=== PATIENT | female | born 1965 | race Caucasian/White ===

== ENCOUNTER 2020-09-04 14:33 | Outpatient (REF) | payer OTHER, SELFPAY | END 2020-09-04 14:34 | disposition home or self-care (01) | LOC: HO.LAB 14:33 | PROVIDERS: Visit Provider Internal Medicine | DX: Z20.828 Contact with and (suspected) exposure to other viral communicable diseases (principal) | CPT/HCPCS: C9803; U0003 ==

== ENCOUNTER 2022-11-01 18:58 | Inpatient (IN) | payer OTHER, SELFPAY ==
--- NOTE | ~2022-11-01 | CT_ITS ---
EXAMINATION: CT ABDOMEN AND PELVIS WITH CONTRAST CLINICAL INFORMATION: Left lower quadrant pain and history of diverticulitis. COMPARISON: None TECHNIQUE: Multidetector volumetric images were obtained from the superior aspect of the liver through the pubic symphysis following administration 85 mL of Omnipaque 350 intravenous contrast. Sagittal and coronal reformatted images were obtained on the technologist's workstation. Oral contrast: No This CT examination was performed using dose optimization techniques as appropriate, variously including the following: *Automated exposure control *Adjustment of mA and/or kV according to patient size (this includes techniques or standardized protocols for targeted exams where dose is matched to indication/reason for exam; i.e. extremities or head) *Use of iterative reconstruction technique DLP: 541 mGy-cm FINDINGS: LUNG BASES: Minimal atelectatic changes seen in the lingula. LIVER, GALLBLADDER, AND BILIARY TREE: The liver is normal in size, shape, and attenuation. There is a linear hypodensity seen in the right anterior hepatic lobe likely prominent focal duct. Otherwise no focal hepatic lesion or biliary ductal dilatation is present. The gallbladder is unremarkable with no evidence of radiopaque gallstones, gallbladder wall thickening, or obvious pericholecystic inflammatory changes. PANCREAS: Unremarkable. SPLEEN: Unremarkable. ADRENAL GLANDS: Unremarkable. KIDNEYS AND URETERS: The kidneys are normal in size, shape, and attenuation. No hydronephrosis, hydroureter, or calculi seen. No perinephric stranding. BLADDER: Unremarkable. GASTROINTESTINAL TRACT: There is diffuse colonic diverticulosis with mild mural thickening and fat stranding along the sigmoid/descending colon junction suggestive of diverticulitis. ABDOMINAL WALL: No significant hernia is appreciated. LYMPH NODES: Normal. VASCULAR: Unremarkable. PELVIC VISCERA: Unremarkable. OSSEOUS STRUCTURES: No aggressive lytic or sclerotic process seen. CT/CT abdomen pelvis w IV con IMPRESSION: Colonic diverticulosis with descending/sigmoid colon diverticulitis. Due to underlying annular mural thickening involving the distal descending colon underlying colonic lesion is not excluded. There is no abscess, obstruction or free air. Correlate with clinical exam and colonoscopy if clinically indicated. Fleischner guidelines were followed.
[2022-11-01 19:06] VITALS: BP 136/86; PULSE 107; RESP 20; TEMP 36.2; O2SAT 100; BMI 23.9
--- NOTE | 2022-11-01 19:09 | ED_ITS ---
HPI - General Adult General Chief complaint: Abdominal Pain <MEG Horner - Last Filed: 11/01/22 19:11> Stated complaint: Pain L lower abdominal <MEG Horner - Last Filed: 11/01/22 19:11> Time Seen by Provider: 11/01/22 20:38 <MEG Horner - Last Filed: 11/01/22 19:11> Source: patient <Cliff Kramer MD - Last Filed: 11/02/22 00:26> Mode of arrival: ambulatory <Cliff Kramer MD - Last Filed: 11/02/22 00:26> Limitations: no limitations <Cliff Kramer MD - Last Filed: 11/02/22 00:26> History of Present Illness HPI narrative: Patient history of diverticulosis, hypertension, hypothyroidism, depression and ADHD comes here for pain in the left lower abdomen since morning today got worse prior to arrival with slight nausea no vomiting patient did not eat much during daytime pain get worse on ambulation no fever no chills no urinary symptoms no abdominal distension no back pain patient had a history of diverticulitis about 25 years ago <Cliff Kramer MD - Last Filed: 11/02/22 00:26> Related Data Allergies/adverse reactions: Allergies Allergy/AdvReac Type Severity Reaction Status Date / Time No Known Allergies Allergy Verified 11/01/22 19:11 <MEG Horner - Last Filed: 11/01/22 19:11> Review of Systems Review of Systems: Yes all other systems are reviewed and are negative <Cliff Kramer MD - Last Filed: 11/02/22 00:26> [facility] Past Medical History Medical History: Medical History Hypertension Hypothyroidism Mood disorder <MEG Horner - Last Filed: 11/01/22 19:11> Social History Social History: Social History Advance Directives: No Advance Directives Information Provided: No <MEG Horner - Last Filed: 11/01/22 19:11> Physical Exam ED Vital Signs: Vital Signs - 24 hr 11/01/22 19:06 11/01/22 21:08 Temperature 97.2 F 98.6 F Pulse Rate 107 H 90 Respiratory Rate 20 16 Blood Pressure 136/86 133/79 Pulse Oximetry 100 100 Oxygen Delivery Method Room Air Room Air BMI result Body Mass Index 23.9 <MEG Horner - Last Filed: 11/01/22 19:11> Vital Signs - 24 hr 11/01/22 19:06 11/01/22 21:08 Temperature 97.2 F 98.6 F Pulse Rate 107 H 90 Respiratory Rate 20 16 Blood Pressure 136/86 133/79 Pulse Oximetry 100 100 Oxygen Delivery Method Room Air Room Air BMI result Body Mass Index 23.9 <Cliff Kramer MD - Last Filed: 11/02/22 00:26> Appearance: Alert. Oriented X3. No acute distress. Eyes: No pallor or icterus ENT: Pharynx normal. Oral Mucosa moist Neck: Normal inspection. Neck supple. CVS: Normal heart rate and rhythm. Pulses normal. Respiratory: No respiratory distress. Equal air entry bilateral, no wheezing/rales/rhonchi Abdomen: Soft , tender left lower quadrant with guarding no rebound tenderness. Bowel sounds are present, no mass palpable, no CVA tenderness Skin: Skin warm and dry. Normal skin color. Normal skin turgor. Extremities: No lower extremity edema. No calf tenderness Neuro: Oriented X 3. No motor deficit. <Cliff Kramer MD - Last Filed: 11/02/22 00:26> Course Course Course Narrative: RME performed by Tere Leonard PA-C. Patient is a 57 year old female presenting to the emergency department with lower left abdominal pain. Patient states that she has a history of diverticulitis and HTN. Labs ordered. Patient placed back in the waiting room pending room availability and results. < MEG Horner - Last Filed: 11/01/22 19:11> Medications Administered Generic Name Dose Route Start Last Admin Trade Name Freq PRN Reason Stop Dose Admin Enoxaparin Sodium 40 mg 11/02/22 00:15 11/02/22 00:20 Enoxaparin Sodium 40 Mg/0.4 Ml Syringe SUBCUT 40 mg Q24H LELO Administration Melatonin 6 mg 11/02/22 00:03 11/02/22 00:20 Melatonin 3 Mg Tablet PO 6 mg BEDTIME PRN Administration Insomnia Discontinued Medications Generic Name Dose Route Start Last Admin Trade Name Freq PRN Reason Stop Dose Admin Sodium Chloride 1,000 mls @ 999 mls/hr 11/01/22 20:40 11/01/22 22:52 Ns IV 11/01/22 21:40 Infused .Q1H1M ONE Infusion Piperacillin Sod/Tazobactam 50 mls @ 100 mls/hr 11/01/22 21:53 11/01/22 23:28 Sod 3.375 gm/ Sodium Chloride IV 11/01/22 22:22 Infused ONCE ONE Infusion Iohexol 100 ml 11/01/22 21:25 11/01/22 21:25 Iohexol 350 Mg/Ml 100 Ml Infus..Btl IV 11/01/22 21:26 85 ml ONCE ONE Administration Morphine Sulfate 4 mg 11/01/22 21:14 11/01/22 21:47 Morphine Sulfate 4 Mg/Ml Cartridge IVPUSH 11/01/22 21:15 4 mg ONCE ONE Administration Protocol Morphine Sulfate 4 mg 11/01/22 23:07 11/01/22 23:14 Morphine Sulfate 4 Mg/Ml Cartridge IVPUSH 11/01/22 23:08 4 mg ONCE ONE Administration Protocol Ondansetron HCl 4 mg 11/01/22 21:14 11/01/22 21:47 Ondansetron Hcl 4 Mg/2 Ml Vial IVPUSH 11/01/22 21:15 4 mg ONCE ONE Administration <MEG Horner - Last Filed: 11/01/22 19:11> Medications Administered Generic Name Dose Route Start Last Admin Trade Name Freq PRN Reason Stop Dose Admin Enoxaparin Sodium 40 mg 11/02/22 00:15 11/02/22 00:20 Enoxaparin Sodium 40 Mg/0.4 Ml Syringe SUBCUT 40 mg Q24H LELO Administration Melatonin 6 mg 11/02/22 00:03 11/02/22 00:20 Melatonin 3 Mg Tablet PO 6 mg BEDTIME PRN Administration Insomnia Discontinued Medications Generic Name Dose Route Start Last Admin Trade Name Freq PRN Reason Stop Dose Admin Sodium Chloride 1,000 mls @ 999 mls/hr 11/01/22 20:40 11/01/22 22:52 Ns IV 11/01/22 21:40 Infused .Q1H1M ONE Infusion Piperacillin Sod/Tazobactam 50 mls @ 100 mls/hr 11/01/22 21:53 11/01/22 23:28 Sod 3.375 gm/ Sodium Chloride IV 11/01/22 22:22 Infused ONCE ONE Infusion Iohexol 100 ml 11/01/22 21:25 11/01/22 21:25 Iohexol 350 Mg/Ml 100 Ml Infus..Btl IV 11/01/22 21:26 85 ml ONCE ONE Administration Morphine Sulfate 4 mg 11/01/22 21:14 11/01/22 21:47 Morphine Sulfate 4 Mg/Ml Cartridge IVPUSH 11/01/22 21:15 4 mg ONCE ONE Administration Protocol Morphine Sulfate 4 mg 11/01/22 23:07 11/01/22 23:14 Morphine Sulfate 4 Mg/Ml Cartridge IVPUSH 11/01/22 23:08 4 mg ONCE ONE Administration Protocol Ondansetron HCl 4 mg 11/01/22 21:14 11/01/22 21:47 Ondansetron Hcl 4 Mg/2 Ml Vial IVPUSH 11/01/22 21:15 4 mg ONCE ONE Administration <Cliff Kramer MD - Last Filed: 11/02/22 00:26> Medical Decision Making Medical Decision Making [facility] Narrative: Patient with acute diverticulitis symptomatic requiring pain medication for pain control unable to eat much hypoglycemic on arrival although lactic acid level is normal and WBC counts normal CT scan showed significant inflammation in sigmoid area. Will admit patient for IV antibiotic and pain control and IV hydration <Cliff Kramer MD - Last Filed: 11/02/22 00:26> Consult Healthcare Provider Management of the patient was discussed with: Hospitalist <Cliff Kramer MD - Last Filed: 11/02/22 00:26> Lab Data [facility] Lab Attestation statement: I reviewed the patient's lab results. <Cilff Kramer MD - Last Filed: 11/02/22 00:26> Result Diagrams: 11/01/22 20:05 11/01/22 20:05 <MEG Horner - Last Filed: 11/01/22 19:11> Labs: Lab Results 11/01/22 11/01/22 11/01/22 Range/Units 20:05 20:05 20:05 WBC 10.8 (4.8-10.8) X10*3/uL RBC 3.81 L (4.20-5.50) X10*6/uL Hgb 11.7 L (12.0-16.0) g/dl Hct 34.5 L (37.0-47.0) % MCV 90.6 (80.0-98.0) fL MCH 30.7 (27.0-33.0) pg MCHC 33.9 (31.0-35.0) g/dl RDW 12.8 (11.0-16.0) % Plt Count 257 (160-400) X10*3/uL MPV 8.9 L (9.4-12.3) fL Immature Gran % (Auto) 0.4 (0.0-0.4) % Neut % (Auto) 68.1 (45-73) % Lymph % (Auto) 19.4 L (20-40) % [place] % (Auto) 10.9 (2-11) % Eos % (Auto) 0.8 (0-4) % Baso % (Auto) 0.4 (0-2) % Lymph # (Auto) 2.1 (1.2-4.9) X10*3/uL [place] # (Auto) 1.2 (0.1-1.2) X10*3/uL Eos # (Auto) 0.1 (0.0-0.4) X10*3/uL Baso # (Auto) 0.0 (0.0-0.2) X10*3/uL Abs Immat Gran (auto) 0.04 H (0.00-0.03) X10*3/uL Absolute Neuts (auto) 7.4 (2.0-8.3) x10*3/uL Absolute Nucleated RBC 0.000 (0.0-0.012) X10*3/uL Nucleated RBC % (auto) 0.0 (0.0-0.2) /100WBC Sodium 135 (135-145) mmol/L Potassium 4.4 (3.3-5.1) mmol/L Chloride 98 (96-108) mmol/L Carbon Dioxide 27 (22-29) mmol/L Anion Gap 14 (12-20) BUN 11 (9-16) mg/dL Creatinine 0.81 (0.5-1.4) mg/dL Estim Creat Clear Calc 67.2 Estimated GFR > 60 POC Glucose (60-115) mg/dL Random Glucose 50 L* (60-115) mg/dL Lactic Acid (0.5-2.0) mmol/L Calcium 9.1 (8.4-10.2) mg/dL Magnesium 2.0 (1.6-2.6) mg/dL Total Bilirubin 0.4 (0.0-1.0) mg/dL AST 37 H (5-31) U/L ALT 30 (0-31) U/L Alkaline Phosphatase 69 (39-117) U/L Total Protein 6.7 (6.5-8.0) g/dL Albumin 4.0 (3.5-5.0) g/dL Urine Color Urine Appearance Urine pH (5.0-9.0) Ur Specific [place] (1.005-1.025) Urine Protein (Neg-Trace) mg/dL Urine Glucose (UA) (Negative) mg/dL Urine Ketones (Negative) mg/dL Urine Blood (Negative) Urine Nitrite (Negative) Ur Leukocyte Esterase (Negative) Urine RBC (0-2) /HPF Urine WBC (0-5) /HPF Ur Squamous Epith Cells (0-2) /HPF Urine Bacteria (None Seen) Hyaline Casts (0-2) /LPF Influenza Type A (PCR) NEGATIVE (Negative) Influenza Type B (PCR) NEGATIVE (Negative) RSV RNA Qual (PCR) NEGATIVE (Negative) SARS-CoV-2 RNA (RT-PCR) NEGATIVE (Negative) 11/01/22 11/01/22 11/01/22 Range/Units 20:05 21:14 22:45 WBC (4.8-10.8) X10*3/uL RBC (4.20-5.50) X10*6/uL Hgb (12.0-16.0) g/dl Hct (37.0-47.0) % MCV (80.0-98.0) fL MCH (27.0-33.0) pg MCHC (31.0-35.0) g/dl RDW (11.0-16.0) % Plt Count (160-400) X10*3/uL MPV (9.4-12.3) fL Immature Gran % (Auto) (0.0-0.4) % Neut % (Auto) (45-73) % Lymph % (Auto) (20-40) % [place] % (Auto) (2-11) % Eos % (Auto) (0-4) % Baso % (Auto) (0-2) % Lymph # (Auto) (1.2-4.9) X10*3/uL [place] # (Auto) (0.1-1.2) X10*3/uL Eos # (Auto) (0.0-0.4) X10*3/uL Baso # (Auto) (0.0-0.2) X10*3/uL Abs Immat Gran (auto) (0.00-0.03) X10*3/uL Absolute Neuts (auto) (2.0-8.3) x10*3/uL Absolute Nucleated RBC (0.0-0.012) X10*3/uL Nucleated RBC % (auto) (0.0-0.2) /100WBC Sodium (135-145) mmol/L Potassium (3.3-5.1) mmol/L Chloride (96-108) mmol/L Carbon Dioxide (22-29) mmol/L Anion Gap (12-20) BUN (9-16) mg/dL Creatinine (0.5-1.4) mg/dL Estim Creat Clear Calc Estimated GFR POC Glucose 83 (60-115) mg/dL Random Glucose (60-115) mg/dL Lactic Acid 1.5 (0.5-2.0) mmol/L Calcium (8.4-10.2) mg/dL Magnesium (1.6-2.6) mg/dL Total Bilirubin (0.0-1.0) mg/dL AST (5-31) U/L ALT (0-31) U/L Alkaline Phosphatase (39-117) U/L Total Protein (6.5-8.0) g/dL Albumin (3.5-5.0) g/dL Urine Color Yellow Urine Appearance Clear Urine pH 6.5 (5.0-9.0) Ur Specific [place] 1.015 (1.005-1.025) Urine Protein Negative (Neg-Trace) mg/dL Urine Glucose (UA) Negative (Negative) mg/dL Urine Ketones Negative (Negative) mg/dL Urine Blood Negative (Negative) Urine Nitrite Negative (Negative) Ur Leukocyte Esterase Small (1+) H (Negative) Urine RBC 0-2 (0-2) /HPF Urine WBC 0-5 (0-5) /HPF Ur Squamous Epith Cells 0-2 (0-2) /HPF Urine Bacteria None Seen (None Seen) Hyaline Casts 0-2 (0-2) /LPF Influenza Type A (PCR) (Negative) Influenza Type B (PCR) (Negative) RSV RNA Qual (PCR) (Negative) SARS-CoV-2 RNA (RT-PCR) (Negative) <MEG Horner - Last Filed: 11/01/22 19:11> Lab Results 11/01/22 11/01/22 11/01/22 Range/Units 20:05 20:05 20:05 WBC 10.8 (4.8-10.8) X10*3/uL RBC 3.81 L (4.20-5.50) X10*6/uL Hgb 11.7 L (12.0-16.0) g/dl Hct 34.5 L (37.0-47.0) % MCV 90.6 (80.0-98.0) fL MCH 30.7 (27.0-33.0) pg MCHC 33.9 (31.0-35.0) g/dl RDW 12.8 (11.0-16.0) % Plt Count 257 (160-400) X10*3/uL MPV 8.9 L (9.4-12.3) fL Immature Gran % (Auto) 0.4 (0.0-0.4) % Neut % (Auto) 68.1 (45-73) % Lymph % (Auto) 19.4 L (20-40) % [place] % (Auto) 10.9 (2-11) % Eos % (Auto) 0.8 (0-4) % Baso % (Auto) 0.4 (0-2) % Lymph # (Auto) 2.1 (1.2-4.9) X10*3/uL [place] # (Auto) 1.2 (0.1-1.2) X10*3/uL Eos # (Auto) 0.1 (0.0-0.4) X10*3/uL Baso # (Auto) 0.0 (0.0-0.2) X10*3/uL Abs Immat Gran (auto) 0.04 H (0.00-0.03) X10*3/uL Absolute Neuts (auto) 7.4 (2.0-8.3) x10*3/uL Absolute Nucleated RBC 0.000 (0.0-0.012) X10*3/uL Nucleated RBC % (auto) 0.0 (0.0-0.2) /100WBC Sodium 135 (135-145) mmol/L Potassium 4.4 (3.3-5.1) mmol/L Chloride 98 (96-108) mmol/L Carbon Dioxide 27 (22-29) mmol/L Anion Gap 14 (12-20) BUN 11 (9-16) mg/dL Creatinine 0.81 (0.5-1.4) mg/dL Estim Creat Clear Calc 67.2 Estimated GFR > 60 POC Glucose (60-115) mg/dL Random Glucose 50 L* (60-115) mg/dL Lactic Acid (0.5-2.0) mmol/L Calcium 9.1 (8.4-10.2) mg/dL Magnesium 2.0 (1.6-2.6) mg/dL Total Bilirubin 0.4 (0.0-1.0) mg/dL AST 37 H (5-31) U/L ALT 30 (0-31) U/L Alkaline Phosphatase 69 (39-117) U/L Total Protein 6.7 (6.5-8.0) g/dL Albumin 4.0 (3.5-5.0) g/dL Urine Color Urine Appearance Urine pH (5.0-9.0) Ur Specific [place] (1.005-1.025) Urine Protein (Neg-Trace) mg/dL Urine Glucose (UA) (Negative) mg/dL Urine Ketones (Negative) mg/dL Urine Blood (Negative) Urine Nitrite (Negative) Ur Leukocyte Esterase (Negative) Urine RBC (0-2) /HPF Urine WBC (0-5) /HPF Ur Squamous Epith Cells (0-2) /HPF Urine Bacteria (None Seen) Hyaline Casts (0-2) /LPF Influenza Type A (PCR) NEGATIVE (Negative) Influenza Type B (PCR) NEGATIVE (Negative) RSV RNA Qual (PCR) NEGATIVE (Negative) SARS-CoV-2 RNA (RT-PCR) NEGATIVE (Negative) 11/01/22 11/01/22 11/01/22 Range/Units 20:05 21:14 22:45 WBC (4.8-10.8) X10*3/uL RBC (4.20-5.50) X10*6/uL Hgb (12.0-16.0) g/dl Hct (37.0-47.0) % MCV (80.0-98.0) fL MCH (27.0-33.0) pg MCHC (31.0-35.0) g/dl RDW (11.0-16.0) % Plt Count (160-400) X10*3/uL MPV (9.4-12.3) fL Immature Gran % (Auto) (0.0-0.4) % Neut % (Auto) (45-73) % Lymph % (Auto) (20-40) % [place] % (Auto) (2-11) % Eos % (Auto) (0-4) % Baso % (Auto) (0-2) % Lymph # (Auto) (1.2-4.9) X10*3/uL [place] # (Auto) (0.1-1.2) X10*3/uL Eos # (Auto) (0.0-0.4) X10*3/uL Baso # (Auto) (0.0-0.2) X10*3/uL Abs Immat Gran (auto) (0.00-0.03) X10*3/uL Absolute Neuts (auto) (2.0-8.3) x10*3/uL Absolute Nucleated RBC (0.0-0.012) X10*3/uL Nucleated RBC % (auto) (0.0-0.2) /100WBC Sodium (135-145) mmol/L Potassium (3.3-5.1) mmol/L Chloride (96-108) mmol/L Carbon Dioxide (22-29) mmol/L Anion Gap (12-20) BUN (9-16) mg/dL Creatinine (0.5-1.4) mg/dL Estim Creat Clear Calc Estimated GFR POC Glucose 83 (60-115) mg/dL Random Glucose (60-115) mg/dL Lactic Acid 1.5 (0.5-2.0) mmol/L Calcium (8.4-10.2) mg/dL Magnesium (1.6-2.6) mg/dL Total Bilirubin (0.0-1.0) mg/dL AST (5-31) U/L ALT (0-31) U/L Alkaline Phosphatase (39-117) U/L Total Protein (6.5-8.0) g/dL Albumin (3.5-5.0) g/dL Urine Color Yellow Urine Appearance Clear Urine pH 6.5 (5.0-9.0) Ur Specific [place] 1.015 (1.005-1.025) Urine Protein Negative (Neg-Trace) mg/dL Urine Glucose (UA) Negative (Negative) mg/dL Urine Ketones Negative (Negative) mg/dL Urine Blood Negative (Negative) Urine Nitrite Negative (Negative) Ur Leukocyte Esterase Small (1+) H (Negative) Urine RBC 0-2 (0-2) /HPF Urine WBC 0-5 (0-5) /HPF Ur Squamous Epith Cells 0-2 (0-2) /HPF Urine Bacteria None Seen (None Seen) Hyaline Casts 0-2 (0-2) /LPF Influenza Type A (PCR) (Negative) Influenza Type B (PCR) (Negative) RSV RNA Qual (PCR) (Negative) SARS-CoV-2 RNA (RT-PCR) (Negative) <Cliff Kramer MD - Last Filed: 11/02/22 00:26> Discharge Plan Discharge Clinical Impression: Diverticulitis <MEG Horner - Last Filed: 11/01/22 19:11> Patient Disposition: Admitted As Inpatient <MEG Horner - Last Filed: 11/01/22 19:11>
[2022-11-01 20:12] LABS: MANUAL DIFF FLAG NO
[2022-11-01 20:13] LABS: Basophils Percent Auto 0.4 % (0-2); Eosinophils Absolute Auto 0.1 X10*3/uL (0.0-0.4); Eosinophils Percent Auto 0.8 % (0-4); Hematocrit 34.5 % (37.0-47.0); Hemoglobin 11.7 g/dl (12.0-16.0); Imm Gran Abs Auto 0.04 X10*3/uL (0.00-0.03); Imm Gran Pct Auto 0.4 % (0.0-0.4); Lymphocytes Absolute Auto 2.1 X10*3/uL (1.2-4.9); Lymphocytes Percent Auto 19.4 % (20-40); Mean Corpuscular HGB Conc 33.9 g/dl (31.0-35.0); Mean Corpuscular Hemoglobin 30.7 pg (27.0-33.0); Mean Corpuscular Volume 90.6 fL (80.0-98.0); Mean Platelet Volume 8.9 fL (9.4-12.3); Monocytes Absolute Auto 1.2 X10*3/uL (0.1-1.2); Monocytes Percent Auto 10.9 % (2-11); Neutrophils Absolute Auto 7.4 x10*3/uL (2.0-8.3); Neutrophils Percent Auto 68.1 % (45-73); Platelet Count 257 X10*3/uL (160-400); Red Blood Count 3.81 X10*6/uL (4.20-5.50); Red Cell Distribution Width 12.8 % (11.0-16.0); White Blood Count 10.8 X10*3/uL (4.8-10.8)
[2022-11-01 20:14] LABS: Appearance Urine Clear; Color Urine Yellow; Glucose Urine UA Negative (Negative); Leukocyte Esterase Urine Small (1+) (Negative); Nitrite Urine Negative (Negative); PH 6.5 (5.0-9.0); Specific Gravity - Urine 1.015 (1.005-1.025); UMIC TRIGGER UACC YES; Urine Blood Negative (Negative); Urine Ketones Negative (Negative); Urine Protein Negative (Neg-Trace)
[2022-11-01 20:24] LABS: Bacteria Urine None Seen (None Seen); Hyaline Casts Urine 0-2 /LPF (0-2); RBC Urine 0-2 /HPF (0-2); Squamous Epithelial Cell Urine 0-2 /HPF (0-2); UACC Culture Trigger YES; WBC Urine 0-5 /HPF (0-5)
[2022-11-01 20:50] LABS: Influenza A PCR NEGATIVE (Negative); Influenza B PCR NEGATIVE (Negative); Resp Syncy Virus RNA Qual PCR NEGATIVE (Negative); SARS COV2 PCR INHOUSE NEGATIVE (Negative)
[2022-11-01 20:52] LABS: Alanine Aminotransferase 30 U/L (0-31); Alkaline Phosphatase 69 U/L (39-117); Anion Gap 14 (12-20); Aspartate Amino Transferase 37 U/L (5-31); Bilirubin Total 0.4 mg/dL (0.0-1.0); Blood Urea Nitrogen 11 mg/dL (9-16); Calcium 9.1 mg/dL (8.4-10.2); Carbon Dioxide 27 mmol/L (22-29); Chloride 98 mmol/L (96-108); Creatinine Clr Calc Pharmacy 67.2; Estimated Glomerular Filt Rate > 60; Glucose Random 50 mg/dL (60-115); Potassium 4.4 mmol/L (3.3-5.1); Sodium 135 mmol/L (135-145); Total Protein 6.7 g/dL (6.5-8.0)
[2022-11-01 21:08] VITALS: BP 133/79; PULSE 90; RESP 16; TEMP 37; O2SAT 100
[2022-11-01 21:20] LABS: Glucose, Whole Blood 83 mg/dL (60-115)
[2022-11-01] MEDS: iohexoL 350 MG/ML 100 ML INFUS..BTL IV (21:25)
[2022-11-01] MEDS: ondansetron HCL 4 MG/2 ML VIAL IVPUSH (21:47)
[2022-11-01] MEDS: Morphine Sulfate 4 MG/ML CARTRIDGE IVPUSH ×2 (21:47→23:14)
[2022-11-01] MEDS: 0.9 % Sodium Chloride 1,000 ML 999 ML IV (21:48)
[2022-11-01] MEDS: Piperacillin Sodium/Tazobactam 3.375 GM in 0.9 % Sodium Chloride 50 ML IV (22:52)
[2022-11-01 23:06] LABS: Lactic Acid 1.5 mmol/L (0.5-2.0)
[2022-11-02] VITALS (9 sets, daily range): BP systolic 103–142; BP diastolic 58–82; PULSE 59–84; RESP 12–18; TEMP 36.5–36.9; O2SAT 98–100
--- NOTE | 2022-11-02 00:07 | P.HPHOSP_ITS ---
History of Present Illness Date of Service: 11/02/22 Chief Complaint: Abdominal pain This is a 57-year-old female with pertinent history of essential hypertension, mood disorder, hypothyroidism who presents to the emergency department for evaluation of abdominal pain. Patient states she started having left lower quadrant abdominal pain on the day of presentation which was sudden in onset, constant and without any relieving factors. Nonradiating. It worse worse with p.o. intake. Patient has not been able to eat anything throughout the day due to abdominal discomfort. Does endorse chills And nausea. She denies fever, vomiting, chest discomfort, palpitations, shortness of breath, changes in urinary or bowel habits. In the emergency department, imaging consistent with diverticulitis Review of Systems Constitutional: Constitutional: Reports chills Cardiovascular: Cardiovascular: Reports no additional cardiovascular complaints Respiratory: Respiratory: Reports no additional respiratory complaints Gastrointestinal: Gastrointestinal: Reports abdominal pain and Reports nausea Genitourinary: Genitourinary: Reports no additional female genitourinary complaints Musculoskeletal: Musculoskeletal: Reports no additional musculoskeletal complaints [facility] Medical History Hypertension Hypothyroidism Mood disorder Functional capacity: independent ambulation Pertinent family history: no family history of CAD Social History Advance Directives: No Advance Directives Information Provided: No Meds Allergies Allergy/AdvReac Type Severity Reaction Status Date / Time No Known Allergies Allergy Verified 11/01/22 19:11 Active Medications: Current Medications Acetaminophen (Acetaminophen 325 Mg Tablet) 650 mg PO Q6H PRN PRN Reason: Pain, Mild (Pain Scale 1-3) Enoxaparin Sodium (Enoxaparin Sodium 40 Mg/0.4 Ml Syringe) 40 mg SUBCUT Q24H [facility] Piperacillin Sod/Tazobactam (Sod 4.5 gm/ Sodium Chloride) 100 mls @ 200 mls/hr IV Q6H [facility] Melatonin (Melatonin 3 Mg Tablet) 6 mg PO BEDTIME PRN PRN Reason: Insomnia Morphine Sulfate (Morphine Sulfate 4 Mg/Ml Cartridge) 4 mg IVPUSH Q4H PRN; Protocol PRN Reason: Pain, Severe (Pain Scale 7-10) Ondansetron HCl (Ondansetron Hcl 4 Mg/2 Ml Vial) 4 mg IVPUSH Q8H PRN PRN Reason: Nausea and Vomiting Sodium Chloride (0.9 % Sodium Chloride Flush 3 Ml Syringe) 3 ml IVFLUSH QSHIFT [facility] Physical Exam Vital Signs and Narrative: Vital Signs: Last Vital Signs Temp 98.6 F 11/01/22 21:08 Pulse 90 11/01/22 21:08 Resp 16 11/01/22 21:08 BP 133/79 11/01/22 21:08 Pulse Ox 100 11/01/22 21:08 O2 Del Method 11/01/22 21:08 BMI result Body Mass Index 23.9 Middle-aged female lying in bed in mild distress Neck supple, no JVD Regular rate and rhythm, S1-S2 heard Regular breath sounds bilaterally, no wheezing or crackles appreciated Abdomen with left lower quadrant tenderness, no guarding, no rebound tenderness, no rigidity Patient is awake, alert and oriented to self, place, time and person ; no focal motor deficit Psych: Normal mood No pedal edema Results Labs 11/01/22 20:05 11/01/22 20:05 Labs: Laboratory Results - last 24 hr 11/01/22 11/01/22 11/01/22 20:05 20:05 20:05 MCV 90.6 MCH 30.7 MCHC 33.9 RDW 12.8 Plt Count 257 MPV 8.9 L Immature Gran % (Auto) 0.4 Neut % (Auto) 68.1 Lymph % (Auto) 19.4 L [place] % (Auto) 10.9 Eos % (Auto) 0.8 Baso % (Auto) 0.4 Lymph # (Auto) 2.1 [place] # (Auto) 1.2 Eos # (Auto) 0.1 Baso # (Auto) 0.0 Abs Immat Gran (auto) 0.04 H Absolute Neuts (auto) 7.4 Absolute Nucleated RBC 0.000 Nucleated RBC % (auto) 0.0 Anion Gap 14 Estim Creat Clear Calc 67.2 Estimated GFR > 60 POC Glucose Random Glucose 50 L* Lactic Acid Calcium 9.1 Magnesium 2.0 Total Bilirubin 0.4 AST 37 H ALT 30 Alkaline Phosphatase 69 Total Protein 6.7 Albumin 4.0 Urine Color Urine Appearance Urine pH Ur Specific [place] Urine Protein Urine Glucose (UA) Urine Ketones Urine Blood Urine Nitrite Ur Leukocyte Esterase Urine RBC Urine WBC Ur Squamous Epith Cells Urine Bacteria Hyaline Casts Influenza Type A (PCR) NEGATIVE Influenza Type B (PCR) NEGATIVE RSV RNA Qual (PCR) NEGATIVE SARS-CoV-2 RNA (RT-PCR) NEGATIVE 11/01/22 11/01/22 11/01/22 20:05 21:14 22:45 MCV MCH MCHC RDW Plt Count MPV Immature Gran % (Auto) Neut % (Auto) Lymph % (Auto) [place] % (Auto) Eos % (Auto) Baso % (Auto) Lymph # (Auto) [place] # (Auto) Eos # (Auto) Baso # (Auto) Abs Immat Gran (auto) Absolute Neuts (auto) Absolute Nucleated RBC Nucleated RBC % (auto) Anion Gap Estim Creat Clear Calc Estimated GFR POC Glucose 83 Random Glucose Lactic Acid 1.5 Calcium Magnesium Total Bilirubin AST ALT Alkaline Phosphatase Total Protein Albumin Urine Color Yellow Urine Appearance Clear Urine pH 6.5 Ur Specific [place] 1.015 Urine Protein Negative Urine Glucose (UA) Negative Urine Ketones Negative Urine Blood Negative Urine Nitrite Negative Ur Leukocyte Esterase Small (1+) H Urine RBC 0-2 Urine WBC 0-5 Ur Squamous Epith Cells 0-2 Urine Bacteria None Seen Hyaline Casts 0-2 Influenza Type A (PCR) Influenza Type B (PCR) RSV RNA Qual (PCR) SARS-CoV-2 RNA (RT-PCR) Imaging Radiologist's Impressions: Impressions Abdomen/Pelvis CT 11/01/22 21:29 IMPRESSION: Colonic diverticulosis with descending/sigmoid colon diverticulitis. Due to underlying annular mural thickening involving the distal descending colon underlying colonic lesion is not excluded. There is no abscess, obstruction or free air. Correlate with clinical exam and colonoscopy if clinically indicated. Fleischner guidelines were followed. Assessment and Plan (1) Diverticulitis: Status: Acute Plan This is a 57-year-old female with pertinent history of essential hypertension, mood disorder, hypothyroidism who presents to the emergency department for evaluation of abdominal pain. ?#. Acute uncomplicated sigmoid diverticulitis:? Will admit patient for pain control and inability to? tolerate p.o. intake. Continue empiric IV antibiot ics.? IV morphine p.r.n. for pain control.? Resuscitating with IV crystalloids.? NPO for bowel rest, may try liquid diet in a.m. and advance diet as tolerated.? Recommend outpatient colonoscopy in 6-8 weeks after symptom resolution. #. hypoglycemia: Likely in the setting of infection. Resolved with dextrose IV push. Monitor q.6 hours #. essential hypertension: Continue home antihypertensives #. generalized anxiety disorder: Continue Wellbutrin #. hypothyroidism: On Synthroid med rec pending DVT prophylaxis:? Lovenox 40 mg daily Full code NPO.? Advance as tolerated Admit as inpatient and will require two night minimum hospital stay for IV antibiotics and symptom control Time Spent With Patient Time: Total time managing care of this patient today ____ minutes. Quality Stroke Does the patient have a stroke diagnosis?: No VTE Prior VTE?: No VTE Risk Level:: Medical - moderate - high VTE Device Contraindication: Treatment Not Indicated VTE Drug Contraindication: N/A - Med Ordered
[2022-11-02] MEDS: Enoxaparin Sodium 40 MG/0.4 ML SYRINGE SUBCUT (00:20)
[2022-11-02] MEDS: Melatonin 3 MG TABLET 6 MG PO (00:20)
[2022-11-02 00:39] LABS: Glucose, Whole Blood 93 mg/dL (60-115)
--- NOTE | 2022-11-02 03:10 | PC.NURSE ---
pt reported left lower abd pain increased to 7/10, pt refused any medications at this time
--- NOTE | 2022-11-02 03:17 | MHC.EDTECH ---
PATIENT WENT TO BATHROOM ,VITALS SIGN TAKEN WARM BLANKET GIVEN .
[2022-11-02] MEDS: Levothyroxine Sodium 75 MCG TABLET PO (05:18)
[2022-11-02] MEDS: Piperacillin Sodium/Tazobactam 4.5 GM in 0.9 % Sodium Chloride 100 ML IV ×3 (05:18→18:24)
[2022-11-02 06:17] LABS: Glucose, Whole Blood 79 mg/dL (60-115)
[2022-11-02 06:18] LABS: MANUAL DIFF FLAG NO
[2022-11-02 06:20] LABS: Basophils Percent Auto 0.4 % (0-2); Eosinophils Absolute Auto 0.1 X10*3/uL (0.0-0.4); Eosinophils Percent Auto 0.9 % (0-4); Hematocrit 31.2 % (37.0-47.0); Hemoglobin 10.5 g/dl (12.0-16.0); Imm Gran Abs Auto 0.02 X10*3/uL (0.00-0.03); Imm Gran Pct Auto 0.2 % (0.0-0.4); Lymphocytes Absolute Auto 2.9 X10*3/uL (1.2-4.9); Mean Corpuscular HGB Conc 33.7 g/dl (31.0-35.0); Mean Corpuscular Hemoglobin 31.3 pg (27.0-33.0); Mean Corpuscular Volume 92.9 fL (80.0-98.0); Mean Platelet Volume 9.3 fL (9.4-12.3); Monocytes Percent Auto 10.9 % (2-11); Neutrophils Absolute Auto 5.3 x10*3/uL (2.0-8.3); Neutrophils Percent Auto 56.6 % (45-73); Platelet Count 242 X10*3/uL (160-400); Red Blood Count 3.36 X10*6/uL (4.20-5.50); White Blood Count 9.4 X10*3/uL (4.8-10.8)
[2022-11-02 06:33] LABS: Anion Gap 11 (12-20); Blood Urea Nitrogen 8 mg/dL (9-16); Calcium 8.7 mg/dL (8.4-10.2); Carbon Dioxide 29 mmol/L (22-29); Chloride 102 mmol/L (96-108); Creatinine Clr Calc Pharmacy 65.6; Estimated Average Glucose 108 mg/dL; Estimated Glomerular Filt Rate > 60; Glucose Random 104 mg/dL (60-115); Hemoglobin A1c % 5.4 %; Potassium 4.8 mmol/L (3.3-5.1); Sodium 137 mmol/L (135-145)
--- NOTE | 2022-11-02 08:36 | PHA.MEDREC ---
Pharmacy Consult ? Medication Reconciliation Pharmacy has completed the medication reconciliation. Patient said she is also on fish oil and magnesium but wasn't completely sure of dose.
--- NOTE | 2022-11-02 08:40 | PC.NURSE ---
report taken from becky weaver pt admitted inpt for mgmt of diverticulitis, poor toleration of po at home, npo while in ed. pt tolerates sips of water without n/v, seen by hospitalist this am and advanced to clear liquids. pt ambulatory w stand by assist to bathroom, pain in control at this time, pt understanding of plan of care at this time, wctm for dc needs.
[2022-11-02 08:55] LABS: IDNOW Serial# 6674DD1D; Strep A Nucleic Acid Negative (Negative)
[2022-11-02] MEDS: Throat Lozenge, Medicated LOZENGE 1 LOZENGE MUCOUS MEM (09:27)
[2022-11-02] MEDS: buPROPion HCl XL 150 MG TAB.ER.24H PO (09:27)
[2022-11-02] MEDS: HYDROmorphone HCl 0.5 MG/0.5 ML SYRINGE IVPUSH ×3 (09:34→22:47)
[2022-11-02] MEDS: ondansetron HCL 4 MG/2 ML VIAL IVPUSH ×2 (09:34→16:21)
--- NOTE | 2022-11-02 11:12 | HO.PM.IMPN ---
Subjective Subjective Date of Service: 11/02/22 Interval History: abd pain Physical Exam Vital Signs: Vital Signs: Last Vital Signs Temp 98.4 F 11/02/22 05:20 Pulse 68 11/02/22 05:20 Resp 12 11/02/22 09:34 BP 103/58 L 11/02/22 05:20 Pulse Ox 98 11/02/22 05:20 O2 Del Method 11/02/22 05:20 BMI result Body Mass Index 23.9 LLq tenderness, nondistended Objective Data Active Medications Acetaminophen (Acetaminophen 325 Mg Tablet) 650 mg PO Q6H PRN PRN Reason: Pain, Mild (Pain Scale 1-3) Alprazolam (Alprazolam 0.5 Mg Tablet) 1 mg PO BID PRN PRN Reason: anxiety Amphetamine/Dextroamphetamine (Amphetamine Mixed Salts 20 Mg Tablet) 20 mg PO DAILY PRN PRN Reason: ADD Benzocaine (Throat Lozenge, Medicated Lozenge) 1 lozenge MUCOUS MEM Q2H PRN PRN Reason: Sore Throat Last Admin: 11/02/22 09:27 Dose: 1 lozenge Documented By: KELSEY Bupropion HCl (Bupropion Hcl Xl 150 Mg Tab.Er.24h) 150 mg PO DAILY [facility] Last Admin: 11/02/22 09:27 Dose: 150 mg Documented By: KELSEY Dextrose (Dextrose 50 % 25 Gm/50 Ml Syringe) 25 gm IVPUSH Q15M PRN; Protocol PRN Reason: per Hypoglycemia Standing Ord. Enoxaparin Sodium (Enoxaparin Sodium 40 Mg/0.4 Ml Syringe) 40 mg SUBCUT Q24H [facility] Last Admin: 11/02/22 00:20 Dose: 40 mg Documented By: ANJALI Glucose (Glucose Gel 15 Gm Gel..Gram.) 15 gm PO Q15M PRN; Protocol PRN Reason: per Hypoglycemia Standing Ord. Hydromorphone HCl (Hydromorphone Hcl 0.5 Mg/0.5 Ml Syringe) 0.5 mg IVPUSH Q4H PRN; Protocol PRN Reason: moderate pain Last Admin: 11/02/22 09:34 Dose: 0.5 mg Documented By: KELSEY Piperacillin Sod/Tazobactam (Sod 4.5 gm/ Sodium Chloride) 100 mls @ 200 mls/hr IV Q6H [facility] Last Infusion: 11/02/22 05:52 Dose: 0 mls/hr Documented By: ANJALI Insulin Human Lispro (Insulin Lispro 100 Unit/Ml 3 Ml Vial) 0 unit SUBCUT Q6H [facility]; Protocol Last Admin: 11/02/22 06:14 Dose: Not Given Documented By: ANJALI Non-Admin Reason: Patient Condition Contraindication Levothyroxine Sodium (Levothyroxine Sodium 75 Mcg Tablet) 75 mcg PO DAILY@0600 [facility] Last Admin: 11/02/22 05:18 Dose: 75 mcg Documented By: ANJALI Melatonin (Melatonin 3 Mg Tablet) 6 mg PO BEDTIME PRN PRN Reason: Insomnia Last Admin: 11/02/22 00:20 Dose: 6 mg Documented By: ANJALI Ondansetron HCl (Ondansetron Hcl 4 Mg/2 Ml Vial) 4 mg IVPUSH Q8H PRN PRN Reason: Nausea and Vomiting Last Admin: 11/02/22 09:34 Dose: 4 mg Documented By: KELSEY Pharmacy Consult (Consult Rx Perform Med Rec) 1 each MISCELLANE ONCE PRN PRN Reason: Consult order Sodium Chloride (0.9 % Sodium Chloride Flush 3 Ml Syringe) 3 ml IVFLUSH QSHIFT [facility] Last Admin: 11/02/22 06:35 Dose: Not Given Documented By: KATIE Non-Admin Reason: Med Not Available Zolpidem Tartrate (Zolpidem Tartrate 5 Mg Tablet) 10 mg PO BEDTIME PRN PRN Reason: insomnia Labs 11/02/22 05:54 11/02/22 05:54 Labs: Laboratory Results - last 24 hr 11/01/22 11/01/22 11/01/22 20:05 20:05 20:05 MCV 90.6 MCH 30.7 MCHC 33.9 RDW 12.8 Plt Count 257 MPV 8.9 L Immature Gran % (Auto) 0.4 Neut % (Auto) 68.1 Lymph % (Auto) 19.4 L [place] % (Auto) 10.9 Eos % (Auto) 0.8 Baso % (Auto) 0.4 Lymph # (Auto) 2.1 [place] # (Auto) 1.2 Eos # (Auto) 0.1 Baso # (Auto) 0.0 Abs Immat Gran (auto) 0.04 H Absolute Neuts (auto) 7.4 Absolute Nucleated RBC 0.000 Nucleated RBC % (auto) 0.0 Anion Gap 14 Estim Creat Clear Calc 67.2 Estimated GFR > 60 POC Glucose Random Glucose 50 L* Estimat Average Glucose Hemoglobin A1c % Lactic Acid Calcium 9.1 Magnesium 2.0 Total Bilirubin 0.4 AST 37 H ALT 30 Alkaline Phosphatase 69 Total Protein 6.7 Albumin 4.0 Urine Color Urine Appearance Urine pH Ur Specific [place] Urine Protein Urine Glucose (UA) Urine Ketones Urine Blood Urine Nitrite Ur Leukocyte Esterase Urine RBC Urine WBC Ur Squamous Epith Cells Urine Bacteria Hyaline Casts Influenza Type A (PCR) NEGATIVE Influenza Type B (PCR) NEGATIVE RSV RNA Qual (PCR) NEGATIVE SARS-CoV-2 RNA (RT-PCR) NEGATIVE S. pyogenes GrpA YANELY 11/01/22 11/01/22 11/01/22 20:05 21:14 22:45 MCV MCH MCHC RDW Plt Count MPV Immature Gran % (Auto) Neut % (Auto) Lymph % (Auto) [place] % (Auto) Eos % (Auto) Baso % (Auto) Lymph # (Auto) [place] # (Auto) Eos # (Auto) Baso # (Auto) Abs Immat Gran (auto) Absolute Neuts (auto) Absolute Nucleated RBC Nucleated RBC % (auto) Anion Gap Estim Creat Clear Calc Estimated GFR POC Glucose 83 Random Glucose Estimat Average Glucose Hemoglobin A1c % Lactic Acid 1.5 Calcium Magnesium Total Bilirubin AST ALT Alkaline Phosphatase Total Protein Albumin Urine Color Yellow Urine Appearance Clear Urine pH 6.5 Ur Specific [place] 1.015 Urine Protein Negative Urine Glucose (UA) Negative Urine Ketones Negative Urine Blood Negative Urine Nitrite Negative Ur Leukocyte Esterase Small (1+) H Urine RBC 0-2 Urine WBC 0-5 Ur Squamous Epith Cells 0-2 Urine Bacteria None Seen Hyaline Casts 0-2 Influenza Type A (PCR) Influenza Type B (PCR) RSV RNA Qual (PCR) SARS-CoV-2 RNA (RT-PCR) S. pyogenes GrpA YANELY 11/02/22 11/02/22 11/02/22 00:35 05:54 05:54 MCV 92.9 MCH 31.3 MCHC 33.7 RDW 13.0 Plt Count 242 MPV 9.3 L Immature Gran % (Auto) 0.2 Neut % (Auto) 56.6 Lymph % (Auto) 31.0 [place] % (Auto) 10.9 Eos % (Auto) 0.9 Baso % (Auto) 0.4 Lymph # (Auto) 2.9 [place] # (Auto) 1.0 Eos # (Auto) 0.1 Baso # (Auto) 0.0 Abs Immat Gran (auto) 0.02 Absolute Neuts (auto) 5.3 Absolute Nucleated RBC 0.000 Nucleated RBC % (auto) 0.0 Anion Gap 11 L Estim Creat Clear Calc 65.6 Estimated GFR > 60 POC Glucose 93 Random Glucose 104 Estimat Average Glucose Hemoglobin A1c % Lactic Acid Calcium 8.7 Magnesium Total Bilirubin AST ALT Alkaline Phosphatase Total Protein Albumin Urine Color Urine Appearance Urine pH Ur Specific [place] Urine Protein Urine Glucose (UA) Urine Ketones Urine Blood Urine Nitrite Ur Leukocyte Esterase Urine RBC Urine WBC Ur Squamous Epith Cells Urine Bacteria Hyaline Casts Influenza Type A (PCR) Influenza Type B (PCR) RSV RNA Qual (PCR) SARS-CoV-2 RNA (RT-PCR) S. pyogenes GrpA YANELY 11/02/22 11/02/22 11/02/22 05:54 06:09 08:36 MCV MCH MCHC RDW Plt Count MPV Immature Gran % (Auto) Neut % (Auto) Lymph % (Auto) [place] % (Auto) Eos % (Auto) Baso % (Auto) Lymph # (Auto) [place] # (Auto) Eos # (Auto) Baso # (Auto) Abs Immat Gran (auto) Absolute Neuts (auto) Absolute Nucleated RBC Nucleated RBC % (auto) Anion Gap Estim Creat Clear Calc Estimated GFR POC Glucose 79 Random Glucose Estimat Average Glucose 108 Hemoglobin A1c % 5.4 Lactic Acid Calcium Magnesium Total Bilirubin AST ALT Alkaline Phosphatase Total Protein Albumin Urine Color Urine Appearance Urine pH Ur Specific [place] Urine Protein Urine Glucose (UA) Urine Ketones Urine Blood Urine Nitrite Ur Leukocyte Esterase Urine RBC Urine WBC Ur Squamous Epith Cells Urine Bacteria Hyaline Casts Influenza Type A (PCR) Influenza Type B (PCR) RSV RNA Qual (PCR) SARS-CoV-2 RNA (RT-PCR) S. pyogenes GrpA YANELY Negative Assessment and Plan (1) Diverticulitis: Status: Acute Plan 57-year-old female with pertinent history of essential hypertension, mood disorder, hypothyroidism who presented to the emergency department for evaluation of abdominal pain. Acute uncomplicated sigmoid diverticulitis advance to clear zosyn outpatient gi follow up pain control hypoglycemia resolved htn holding losartan/hctz until intake improves anxiety wellbutrin hypothyroid synthroid dvt prophylaxis - lovenox full code reason for continued hospitalization:still with pain, unable to tolerate po Time Spent With Patient Time: Total time managing care of this patient today ____ minutes. Quality Stroke Does the patient have a stroke diagnosis?: No VTE Prior VTE?: No VTE Risk Level:: Medical - moderate - high VTE Device Contraindication: Treatment Not Indicated VTE Drug Contraindication: N/A - Med Ordered
[2022-11-02 12:44] LABS: Glucose, Whole Blood 95 mg/dL (60-115)
[2022-11-02] MEDS: Acetaminophen 325 MG TABLET 650 MG PO (12:48)
[2022-11-02 23:12] LABS: Glucose, Whole Blood 107 mg/dL (60-115)
[2022-11-03] MEDS: Piperacillin Sodium/Tazobactam 4.5 GM in 0.9 % Sodium Chloride 100 ML IV ×3 (00:09→12:00)
[2022-11-03] MEDS: 0.9 % Sodium Chloride Flush 3 ML SYRINGE IVFLUSH ×2 (00:10→08:32)
[2022-11-03] MEDS: Zolpidem Tartrate 5 MG TABLET 10 MG PO (00:13)
--- NOTE | 2022-11-03 00:14 | PC.NURSE ---
Half dose of ambien given per PT request.
[2022-11-03] MEDS: Enoxaparin Sodium 40 MG/0.4 ML SYRINGE SUBCUT (00:32)
[2022-11-03 00:44] VITALS: BP 140/78; PULSE 61; RESP 18; O2SAT 98
[2022-11-03 06:06] VITALS: BP 144/80; PULSE 65; RESP 16; TEMP 36.7; O2SAT 98
[2022-11-03 06:10] VITALS: RESP 16
[2022-11-03] MEDS: Levothyroxine Sodium 75 MCG TABLET PO (06:10)
[2022-11-03] MEDS: HYDROmorphone HCl 0.5 MG/0.5 ML SYRINGE IVPUSH (06:10)
[2022-11-03] MEDS: ondansetron HCL 4 MG/2 ML VIAL IVPUSH (06:10)
[2022-11-03 06:27] LABS: Hematocrit 30.9 % (37.0-47.0); Hemoglobin 10.5 g/dl (12.0-16.0); Mean Corpuscular Hemoglobin 31.1 pg (27.0-33.0); Mean Corpuscular Volume 91.4 fL (80.0-98.0); Mean Platelet Volume 9.3 fL (9.4-12.3); Platelet Count 255 X10*3/uL (160-400); Red Blood Count 3.38 X10*6/uL (4.20-5.50); Red Cell Distribution Width 12.8 % (11.0-16.0); White Blood Count 5.5 X10*3/uL (4.8-10.8)
[2022-11-03 06:34] LABS: Glucose, Whole Blood 108 mg/dL (60-115)
[2022-11-03 06:52] LABS: Anion Gap 14 (12-20); Blood Urea Nitrogen 6 mg/dL (9-16); Calcium 9.2 mg/dL (8.4-10.2); Carbon Dioxide 27 mmol/L (22-29); Chloride 102 mmol/L (96-108); Creatinine Clr Calc Pharmacy 63.3; Estimated Glomerular Filt Rate > 60; Glucose Fasting 128 mg/dL (60-99); Potassium 4.5 mmol/L (3.3-5.1); Sodium 138 mmol/L (135-145)
--- NOTE | 2022-11-03 07:21 | PC.NURSE ---
pt sleeping in room at shift report.
[2022-11-03 07:34] VITALS: BP 125/95; PULSE 55; RESP 14; TEMP 36.2; O2SAT 98
--- NOTE | 2022-11-03 07:40 | PC.NURSE ---
pt awake, offered clear liquid tray. asking about discharge home
[2022-11-03] MEDS: buPROPion HCl XL 150 MG TAB.ER.24H PO (07:59)
--- NOTE | 2022-11-03 08:48 | PC.NURSE ---
pt was just seen by Dr Cadet plan is to advance to bland diet and po pain control and assess for discharge home
--- NOTE | 2022-11-03 09:57 | MHC.CM.PN ---
PT REPORTS SHE LIVES ALONE AND IS INDEPENDENT WITH CARE, WORKS AND DRIVES PT HAS NO DME AND NO SERVICES PT IS COVID VAX X 3 SHE SAYS SHE HAS A HCP, COPY REQUESTED PCP: SATISH EMERSON DCP: HOME NO SERVICES VIA SELF TRANSPORT
--- NOTE | 2022-11-03 10:48 | PM.DS ---
DS: Providers Provider Date of Service: 11/03/22 Date of admission: 11/02/22 00:03 Primary care physician: Unknown Physician DS: Diagnosis Discharge Diagnosis (1) Diverticulitis: Status: Acute DS: Summary Hospital Course Hospital Course: from initial hpi: Chief Complaint:? Abdominal pain This is a 57-year-old female with pertinent history of essential hypertension, mood disorder, hypothyroidism who presents to the emergency department for evaluation of abdominal pain. Patient states she started having left lower quadrant abdominal pain on the day of presentation which was sudden in onset, constant and without any relieving factors.? Nonradiating.? It worse worse with p.o. intake.? Patient has not been able to eat anything throughout the day due to abdominal discomfort.? Does endorse chills? And nausea.? She denies fever, vomiting, chest discomfort, palpitations, shortness of breath, changes in urinary or bowel habits. In the emergency department, imaging consistent with diverticulitis hospital course: patient was admitted for acute uncomplicated sigmoid diverticulitis. She was treated with IV Zosyn. Pain improved. She was able to advance to solid diet and tolerate. Course was complicated by hypoglycemia on admission which resolved. For hypertension her losartan/HCTZ was held and can be restarted as outpatient as intake improves. For anxiety she was continued on Wellbutrin. For hypothyroidism she was continued on Synthroid. Patient is feeling better will be discharged home. She should follow up outpatient with Gastroenterology for colonoscopy in several weeks. Time Spent with Patient Time attestation: Total time managing care of this patient today ____ minutes. Discharge coordination time: Greater than 30 minutes Quality: Safe Use of Opioids Does Pt have an Active Cancer Diagnosis on the Problem List?: No Quality: Stroke Does the patient have a stroke diagnosis?: No Physical Exam Vital Signs: Vital Signs: Last Vital Signs Temp 97.2 F 11/03/22 07:34 Pulse 55 11/03/22 07:34 Resp 14 11/03/22 07:34 BP 125/95 H 11/03/22 07:34 Pulse Ox 98 11/03/22 07:34 O2 Del Method 11/03/22 07:34 BMI result Body Mass Index 23.9 General: AO X 3, no acute distress Resp: CTA bilateral, no accessory muscles used CVS: S1,S2,RRR GI: soft, non tender, non distended Neuro: motor grossly intact, alert Psych: appropriate affect, appropriate insight DS: Data Data Completed and Pending Labs on day of discharge: Laboratory Results - last 24 hr 11/02/22 11/02/22 11/03/22 12:40 23:07 06:01 WBC 5.5 RBC 3.38 L Hgb 10.5 L Hct 30.9 L MCV 91.4 MCH 31.1 MCHC 34.0 RDW 12.8 Plt Count 255 MPV 9.3 L Absolute Nucleated RBC 0.000 Nucleated RBC % (auto) 0.0 Sodium Potassium Chloride Carbon Dioxide Anion Gap BUN Creatinine Estim Creat Clear Calc Estimated GFR POC Glucose 95 107 Fasting Glucose Calcium 11/03/22 11/03/22 06:01 06:09 WBC RBC Hgb Hct MCV MCH MCHC RDW Plt Count MPV Absolute Nucleated RBC Nucleated RBC % (auto) Sodium 138 Potassium 4.5 Chloride 102 Carbon Dioxide 27 Anion Gap 14 BUN 6 L Creatinine 0.86 Estim Creat Clear Calc 63.3 Estimated GFR > 60 POC Glucose 108 Fasting Glucose 128 H Calcium 9.2 Preliminary micro results at discharge 11/01/22 22:45 Blood Culture - Preliminary Blood - Venous No growth after 24 hours. 11/01/22 22:45 Blood Culture - Preliminary Blood - Venous No growth after 24 hours. 11/01/22 20:30 Urine Culture - Preliminary Urine clean catch - Urine dixon top No growth to date. Discharge Plan Discharge Anticipated Discharge Date/Time: 11/03/22 10:46 Patient Disposition: Home, Self-Care Discharge Diagnosis: diverticulitis Referrals: Physician,Unknown J [Primary Care Provider] - 1 Week Discharge Medications: New amoxicillin-pot clavulanate 875-125 mg tablet 1 tab PO Q12H Qty: 14 0RF Continued alprazolam 1 mg tablet 1 tab PO BID PRN (Reason: anxiety) levothyroxine 75 mcg tablet 1 tab PO DAILY dextroamphetamine-amphetamine 20 mg tablet 1 tab PO DAILY PRN (Reason: ADD) Rx Instructions: ONLY TAKES ON WEEKDAYS FOR WORK zolpidem 10 mg tablet 1 tab PO BEDTIME PRN (Reason: insomnia) losartan-hydrochlorothiazide 50-12.5 mg tablet 1 tab PO DAILY bupropion HCl 150 mg tablet extended release 24 hr 1 tab PO DAILY Diet: Advance to usual diet Activity on Discharge: As tolerated Stand Alone Forms: Patient Portal Discharge page Care Plan Goals: recovery Health Concerns: diverticulitis Plan of Treatment: 7 days augmentin, advance diet as tolerated, follow up with pcp/gi for colonoscopy Assessment: see above
[2022-11-03 12:33] VITALS: BP 126/80; PULSE 66; RESP 14; TEMP 36.5; O2SAT 98
[2022-11-03 12:41] LABS: Glucose, Whole Blood 87 mg/dL (60-115)
--- NOTE | 2022-11-03 13:43 | PC.NURSE ---
po challenge with bland diet. she offers complaints of neck and arm pain from texting she was offered tylenol and declined
== END 2022-11-03 16:01 | disposition home or self-care (01) | DRG 392 ==
LOC: HO.ED 22:00 → HO.EDOVER 11-02 00:09
PROVIDERS: Physician Assistant Medical; Admitting Provider Student in an Organized Health Care Education/Training Program; Emergency Provider Internal Medicine; Visit Provider Internal Medicine
DX: K57.32 Diverticulitis of large intestine without perforation or abscess without bleeding (principal); E03.9 Hypothyroidism, unspecified; E16.2 Hypoglycemia, unspecified; F41.1 Generalized anxiety disorder; I10 Essential (primary) hypertension; F90.9 Attention-deficit hyperactivity disorder, unspecified type; F32.A Depression, unspecified; Z20.822 Contact with and (suspected) exposure to COVID-19; Z79.890 Hormone replacement therapy; Z79.899 Other long term (current) drug therapy
CPT/HCPCS: 0241U; 36415; 74177; 80048; 80053; 81001; 82947; 83036; 83605; 83735; 85025; 85027; 87040; 87086; 87651; 99221; 99285; J1170; J1650; J2270; J2405; J2543; Q9967

== ENCOUNTER 2023-02-19 12:14 | Day surgery (SDC) | payer OTHER, SELFPAY ==
[2023-02-19 12:34] VITALS: BMI 23.6
[2023-02-19 12:48] VITALS: BP 127/82; PULSE 59; RESP 16; TEMP 36.2; O2SAT 97
--- NOTE | 2023-02-19 13:00 | HO.ANESPROP2 ---
HPI - Anesthesia Eval Consult details Narrative: diverticulitis PMFSH Active Problems Active Problems: All Active Problems (Updated 11/02/22 @ 00:25 by Cliff Kramer MD) Diverticulitis (Acute) Mood disorder (Acute) Hypertension (Acute) Hypothyroidism (Acute) Past Medical History Medical History (Updated 11/02/22 @ 00:25 by Cliff Kramer MD) Hypertension Hypothyroidism Mood disorder Family History Family history of problems with anesthesia: No Surgical History Surgical History (Updated 02/18/23 @ 07:43 by Tawny Melgar RN) H/O hemorrhoidectomy History of Problems with Anesthesia: No Social History Social History Alcohol intake: current Alcohol intake frequency: a few times a month Patient Tobacco Use Status: Never used Tobacco Use of substances other than those prescribed or required for medical reasons: No Advance Directives: No Advance Directives Information Provided: Yes service: No Current occupational status: employed Meds Allergies Allergy/AdvReac Type Severity Reaction Status Date / Time No Known Allergies Allergy Verified 11/01/22 19:11 Home Medications Medication Instructions Recorded Confirmed Last Taken Type alprazolam 1 mg tablet 1 tab PO BID PRN anxiety 11/02/22 11/02/22 11/01/22 History bupropion HCl 150 mg 24 hr tablet, 1 tab PO DAILY 11/02/22 11/02/22 11/01/22 History extended release dextroamphetamine-amphetamine 20 1 tab PO DAILY PRN ADD 11/02/22 11/02/22 11/01/22 History mg tablet levothyroxine 75 mcg tablet 1 tab PO DAILY 11/02/22 11/02/22 11/02/22 History losartan 50 mg-hydrochlorothiazide 1 tab PO DAILY 11/02/22 11/02/22 11/01/22 History 12.5 mg tablet zolpidem 10 mg tablet 1 tab PO BEDTIME PRN insomnia 11/02/22 11/02/22 10/31/22 History Exam Exam Date and Time: February 19, 2023 1300 Height,Weight and Vital Signs: Height 5 ft 5 in Weight 64.41 kg Last Vital Signs Temp 97.1 F 02/19/23 12:48 Pulse 59 02/19/23 12:48 Resp 16 02/19/23 12:48 BP 127/82 02/19/23 12:48 Pulse Ox 97 02/19/23 12:48 O2 Del Method Room Air 02/19/23 12:48 Airway Mallampati Class: II TM Dist: >3cm Neck ROM: Full Loose/Missing/Broken Teeth: No Heart: rr Lungs: cta Assessment and Plan Assessment Anesthesia Assessment: Anesthesia Plan Discussed and Chart Reviewed Final Anesthetic Review Family History of Problems with Anesthesia: No History of Problems with Anesthesia: No NPO: Yes ASA Class: II Final Preanesthetic Review: No Changes in Pt Med Stat, Meds/Allgs Chart Reviewed, Consent Obtained/Reviewed and Anes Risks/Benef Reviewed Patient Risk: Low Procedure Risk: Low Anesthetic Plan Anesthetic Plan: MAC: Disposition: Standard PACU
--- NOTE | 2023-02-19 13:11 | MHC.SHP ---
Pre-Procedural Eval Section A Date of Service: 02/19/23 The patient is an INPATIENT: No Changes since office visit: No Cold of Flu in the past 2 weeks, No New Medical Problems, No Changes in Medication and No Patient answered all questions The History & Physical has been completed within 30 days and I have reviewed it.: Yes Section B Chief Complaint: Diverticulitis of large intestine without perforat Allergies: Allergies Allergy/AdvReac Type Severity Reaction Status Date / Time No Known Allergies Allergy Verified 11/01/22 19:11 Plan I have reviewed the history and physical and performed a pertinent physical examination on my patient. No changes have occurred unless specified. Time Spent With Patient Time: Total time managing care of this patient today ____ minutes.
--- NOTE | 2023-02-19 13:38 | P.BOP_ITS ---
Brief Operative Note Date of Service: 02/19/23 Pre-op diagnosis: diverticulitis Post-op diagnosis: same Procedure: colonoscopy Surgeon: Foster Crooks Anesthesia: MAC Was an Thin Film Technician used for this Procedure?: No Estimated blood loss (mL): 2 Pathology: other Condition: stable Disposition: PACU
[2023-02-19 13:45] VITALS: BP 110/76; PULSE 89; RESP 16; TEMP 36.1; O2SAT 97
[2023-02-19 14:00] VITALS: BP 126/82; PULSE 64; RESP 16; TEMP 36.2; O2SAT 100
--- NOTE | 2023-02-19 14:06 | OP_ITS ---
DATE OF SERVICE: 02/19/2023 SURGEON: Foster Crooks MD INDICATIONS: Diverticulitis. PREOPERATIVE DIAGNOSIS: POSTOPERATIVE DIAGNOSIS: PROCEDURE PERFORMED: Colonoscopy to the terminal ileum with biopsy. ESTIMATED BLOOD LOSS: COMPLICATIONS: ANESTHESIA: Monitored anesthesia care. ASSISTANTS: SPECIMENS: DESCRIPTION OF PROCEDURE: A history and physical was performed. The risks and benefits of the procedure were explained to the patient. Informed consent was obtained. The patient was placed in the left lateral decubitus position. A digital rectal exam was performed and was found to be normal. The Olympus pediatric video colonoscope was introduced into the rectum and advanced to the cecum without difficulty. The cecum was identified by transillumination, palpation, identification of ileocecal valve. Examination was performed. The scope was removed. She tolerated the procedure well and was returned to the recovery area in stable condition. FINDINGS: The terminal ileum was examined and appeared normal. The visualized colonic mucosa was normal. The quality of prep was excellent. At 70 cm from the anal verge was a less than 5 mm sessile polyp, which was removed with a biopsy forceps. No other polyps were identified. There was moderate sigmoid diverticulosis with scattered diverticula throughout the transverse and right colon. There was no evidence of diverticulitis. Retroflexed examination showed some small internal hemorrhoids. IMPRESSION: Colon polyp. RECOMMENDATION: Follow up the biopsy results. MD MUNIRA Zapata/NELLA / [id number]
== END 2023-02-19 14:41 | disposition home or self-care (01) ==
PROVIDERS: PCP Nurse Practitioner Family; Visit Provider Internal Medicine Gastroenterology
PROC: 0DJD8ZZ Inspection of Lower Intestinal Tract, Via Natural or Artificial Opening Endoscopic (ICD-10-PCS; CPT 45378; principal; 2023-02-19 13:30)
DX: Z12.11 Encounter for screening for malignant neoplasm of colon (principal); Z86.010 Personal history of colon polyps; Z87.19 Personal history of other diseases of the digestive system; D12.4 Benign neoplasm of descending colon; K64.8 Other hemorrhoids; K21.9 Gastro-esophageal reflux disease without esophagitis; I10 Essential (primary) hypertension; E03.9 Hypothyroidism, unspecified; G47.00 Insomnia, unspecified; Z79.899 Other long term (current) drug therapy; Z87.891 Personal history of nicotine dependence
CPT/HCPCS: 45380; 88305